=== PATIENT | male | born 1975 | race Hispanic/Latino ===

== ENCOUNTER → 2017-05-05 | Day surgery (SDC) | payer SELFPAY ==
[~2017-05-05] MED LIST: BUPIVACAINE HCL 0.5% INJ 30 ML VIAL INJ ONE; CLINDAMYCIN 300MG 50 ML IV ONE; CLINDAMYCIN 600MG/D5W 50ML 50 ML IV ONE; DEXAMETHASONE SOD PHOS INJ 4 MG/ML VIAL IV ONE; FENTANYL CITRATE/PF 100MCG/2 ML INJ ONE; KETOROLAC TROMETHAMINE 30 MG/ML VIAL IV ONE; LIDOCAINE HCL 2% LOCAL INJ 5 ML SDV VIAL INJ ONE; MIDAZOLAM HCL 2 MG/2 ML VIAL ONE; MUPIROCIN 2% OINT 22 GM TUBE ONE; ONDANSETRON HCL INJ 2 MG/ML VIAL IV ONE; PROPOFOL IV EMULSION 10 MG/ML 20 ML VIAL IV ONE; SEVOFLURANE INHAL SOLN 250 ML PEN BTL INH ONE
--- NOTE | 2017-05-05 15:25 | Operative Report ---
DATE OF PROCEDURE: May 05, 2017 PREOPERATIVE DIAGNOSIS: Biopsy proven spindle cell carcinoma, right leg. POSTOPERATIVE DIAGNOSIS: Biopsy proven spindle cell carcinoma, right leg, pending final pathology. PROCEDURE: Radical excision of neoplasm, right leg. ANESTHESIA: General. HISTORY: The patient is a 41-year-old male who had a slowly enlarging mass located on the lateral aspect of the right knee for several years now. 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 MRI was obtained which shows the neoplasm is extrafascial to the musculature but may or may not involve the greater peroneal nerve. The risks, benefits and alternative treatments to include the radical excision of the neoplasm were discussed with the patient and family in detail. They are aware that certain vital structures may need to be sacrificed if they are intimately involved with the neoplastic process. DETAILS OF PROCEDURE: Patient was marked preoperatively in the holding area. He was brought to the operating theater; and after the induction of adequate general anesthesia, he was prepped and draped in a supine position. A time out was performed. The procedure was begun by marking out the proposed skin excision which included the punch biopsy site and had a margin of approximately 1.5 cm on all sides of the biopsy site. The incision was then made through the skin and subcutaneous tissues. Bleeding was controlled using electrocautery. The dissection continued in the superficial subcutaneous plane both anteriorly and posteriorly until the dissection was well past the limits of the neoplasm. At this point, the incision was deepened down to the fascia of the anterior and posterior leg muscles, and the neoplasm was elevated off of the fascia of the muscles. It did not appear that the neoplastic process violated the fascia. Immediately in the mid substance of the neoplastic process, the greater peroneal nerve was encountered. It appeared to be intimately involved in the neoplastic process. For this reason, it was sacrificed both proximally and distally at its entrance and exit to the neoplastic process. The entire neoplasm was then removed. It was oriented with sutures for permanent pathologic identification and then sent to the anatomic pathology lab. At this point, the wound was irrigated with sterile water. Hemostasis was made absolute using electrocautery. Because of the depth and dimension of the wound, a percutaneous incision was made inferiorly, and a 7-German Mohsen-Harris drain was placed. It was secured to the skin with 3-0 nylon sutures. At this point, the wound was closed with 2-0 Monocryl in an interrupted buried fashion to approximate the deep dermis and a 3-0 Monocryl running subcuticular stitch. Xeroform gauze, Bactroban ointment and a sterile, bulking, conforming bandage were applied to the wound. An Amandeep wrap was then placed to hold the dressings in place. The drain was placed on suction, and the patient was returned to recovery room in satisfactory condition and discharged with a postoperative instruction sheet as well as a followup appointment. Job#: [id number]
== END | disposition home or self-care (01) ==
LOC: OR 05:38
PROVIDERS: ATTEND Plastic Surgery
DX: C49.21 Malignant neoplasm of connective and soft tissue of right lower limb, including hip (principal); Z01.810 Encounter for preprocedural cardiovascular examination
CPT/HCPCS: 27615; 88305; 88342; 93005; J1100; J1885; J2001; J2250; J2405; 88304